=== PATIENT | male | born 1985 | race Caucasian/White ===

== ENCOUNTER 2017-10-07 11:39 | Emergency (ER) | payer OTHER ==
[~2017-10-07] VITALS: Ht 167.6 cm; Wt 87.0 kg
[2017-10-07 11:46] VITALS: TEMP 36.9; Ht 167.6 cm; Wt 87.0 kg
[2017-10-07] MEDS ORDERED: LORAZEPAM 1 MG TAB SL STA (12:03)
[2017-10-07 12:48] LABS: BASO % 0.3 %; BASO ABS # 0.03 K/uL (0-0.2); COMPLETE YES; EOS % 1.2 %; HEMATOCRIT 50.9 % (42-52); IG% 0.2 %; LYMPH % 25.9 %; LYMPH ABS # 2.71 K/uL (1.2-3.4); MEAN CELL VOLUME 86.4 fL (80-100); MEAN CORPUSCULAR HEMOGLOBIN 30.1 pg (25-34); MEAN CORPUSCULAR HGB CONC 34.8 g/dl (32-36); MEAN PLATELET VOLUME 11.2 fL (7.4-10.4); MONO % 8.9 %; NEUT % 63.5 %; PLATELET COUNT 238 K/uL (130-400); RED BLOOD COUNT 5.89 M/uL (4.7-6.1); WHITE BLOOD COUNT 10.47 K/uL (4.8-10.8)
[2017-10-07 13:04] LABS: URINE APPEARANCE TURBID (CLEAR); URINE BILIRUBIN NEG (NEG); URINE COLOR YELLOW; URINE NITRITE NEG (NEG); URINE PH 8.5 (4.5-7.5); URINE SPECIFIC GRAVITY 1.027 (1.000-1.030); UROBILINOGEN NEG (NEG)
[2017-10-07 13:11] LABS: MANUAL MICROSCOPIC REQUIRED? NO; REVIEW REQ? NO
[2017-10-07 13:13] LABS: ALT/SGPT 25 U/L (12-78); AST/SGOT 11 U/L (15-37); BLOOD UREA NITROGEN 17 mg/dl (7-18); BUN/CREATININE RATIO 16.8 (10-20); CALCIUM 8.8 mg/dl (8.5-10.1); CARBON DIOXIDE 30 mmol/L (21-32); CHLORIDE 106 mmol/L (98-107); CREATININE 1.03 mg/dl (0.60-1.40); GLUCOSE 105 mg/dl (70-99); SODIUM 140 mmol/L (136-145)
[2017-10-07 13:20] LABS: BENZODIAZEPINE, URINE NEG (NEG); COCAINE,URINE NEG (NEG); PHENCYCLIDINE, URINE NEG (NEG)
[2017-10-07 13:23] LABS: ALKALINE PHOSPHATASE 68 U/L (45-117)
--- NOTE | 2017-10-07 13:26 | EMERGENCY ROOM VISIT NOTE ---
History Report prepared by Иван: Jaclyn Cortez Under the Supervision of: Dr. Richard Agrawal D.O. First contact with patient: 11:52 Chief Complaint: MENTAL HEALTH EVALUATION Stated Complaint: PTSD History of Present Illness The patient is a 32 year old male who presents to the Emergency Room for a mental health evaluation. The patient states that for the past two days "I can' t deal with every day stress." He recently lost his house and his job and had to move back in with his parents. He states that over the past month he has been trying to remain positive. Last night he started having thoughts of hurting himself and has a concrete plan. He states that he would never act on these thoughts because he has 3 children that depend on him. The patient states that "I have seen a lot of stuff and I have no one to talk to and no support system." He does not see a therapist. He has never been inpatient for mental health in the past. The patient states that he has been unable to sleep because "I am having flashbacks of horrible things that I have seen and done." He used to drink alcohol as a coping mechanism, but stopped drinking alcohol 3 years ago. Source of History: patient Onset: 2 days ago Position: other (mental health) Timing: worsening Modifying Factors (Worsening): other (stress) Note: Pt admits to SI. Review of Systems See HPI for pertinent positives & negatives. A total of 10 systems reviewed and were otherwise negative. Past Medical & Surgical Medical Problems: (1) Lumbago Family History No pertinent history stated. Social History Alcohol Use: occasionally Drug Use: cocaine, marijuana Marital Status: in relationship Housing Status: lives with family Occupation Status: unemployed Current/Historical Medications No Active Prescriptions or Reported Meds Allergies Coded Allergies: No Known Allergies (Unverified , 10/07/17) Physical Exam Vital Signs Date Time Temp Pulse Resp B/P (MAP) Pulse Ox O2 Delivery O2 Flow Rate FiO2 10/07/17 15:02 96 20 148/104 95 10/07/17 11:46 36.9 94 18 155/94 97 Room Air Physical Exam GENERAL: Patient is awake, alert, very anxious appearing. EYES: The conjunctivae are clear. The pupils are round and reactive. EARS, NOSE, MOUTH AND THROAT: The nose is without any evidence of any deformity. Mucous membranes are moist tongue is midline NECK: The neck is nontender and supple. RESPIRATORY: Normal respiratory effort is noted there is no evidence of wheezing rhonchi or rales CARDIOVASCULAR: Regular rate and rhythm noted there no murmurs rubs or gallops normal S1 normal S2 GASTROINTESTINAL: The abdomen is soft. Bowel sounds are present in all quadrants. Abdomen is nontender MUSCULOSKELETAL/EXTREMITIES: There is no evidence of gross deformity full range of motion is noted in the hips and shoulders SKIN: There is no obvious evidence of any rash. There are no petechiae, pallor or cyanosis noted. NEUROLOGIC: Patient is awake alert and oriented x3 PSYCH: Affect is very flat. Patient appears depressed, currently admitting to with a plan but will not elaborate. Patient makes very poor eye contact. Medical Decision & Procedures Laboratory Results 10/07/17 12:31 Red Blood Count 5.89, Mean Corpuscular Volume 86.4, Mean Corpuscular Hemoglobin 30.1, Mean Corpuscular Hemoglobin Concent 34.8, Mean Platelet Volume 11.2, Neutrophils (%) (Auto) 63.5, Lymphocytes (%) (Auto) 25.9, Monocytes (%) (Auto) 8.9, Eosinophils (%) (Auto) 1.2, Basophils (%) (Auto) 0.3, Neutrophils # (Auto) 6.65, Lymphocytes # (Auto) 2.71, Monocytes # (Auto) 0.93, Eosinophils # (Auto) 0.13, Basophils # (Auto) 0.03 10/07/17 12:31 Test 10/07/17 11:57 10/07/17 12:31 Urine Color YELLOW Urine Appearance TURBID (CLEAR) Urine pH 8.5 (4.5-7.5) Urine Specific [place] 1.027 (1.000-1.030) Urine Protein NEG (NEG) Urine Glucose (UA) NEG (NEG) Urine Ketones NEG (NEG) Urine Occult Blood NEG (NEG) Urine Nitrite NEG (NEG) Urine Bilirubin NEG (NEG) Urine Urobilinogen NEG (NEG) Urine Leukocyte Esterase TRACE (NEG) Urine WBC (Auto) 1-5 /hpf (0-5) Urine RBC (Auto) 0-4 /hpf (0-4) Urine Hyaline Casts (Auto) 5-10 /lpf (0-5) Urine Epithelial Cells (Auto) 10-20 /lpf (0-5) Urine Bacteria (Auto) NEG (NEG) Urine Opiates Screen NEG (NEG) Urine Methadone, Qualitative NEG (NEG) Urine Barbiturates NEG (NEG) Urine Phencyclidine (PCP) Level NEG (NEG) Ur Amphetamine/Methamphetamine POS (NEG) MDMA (Ecstasy) Screen NEG (NEG) Urine Benzodiazepines Screen NEG (NEG) Urine Cocaine Metabolite NEG (NEG) Urine Marijuana (THC) POS (NEG) White Blood Count 10.47 K/uL (4.8-10.8) Red Blood Count 5.89 M/uL (4.7-6.1) Hemoglobin 17.7 g/dL (14.0-18.0) Hematocrit 50.9 % (42-52) Mean Corpuscular Volume 86.4 fL (80-100) Mean Corpuscular Hemoglobin 30.1 pg (25-34) Mean Corpuscular Hemoglobin Concent 34.8 g/dl (32-36) Platelet Count 238 K/uL (130-400) Mean Platelet Volume 11.2 fL (7.4-10.4) Neutrophils (%) (Auto) 63.5 % Lymphocytes (%) (Auto) 25.9 % Monocytes (%) (Auto) 8.9 % Eosinophils (%) (Auto) 1.2 % Basophils (%) (Auto) 0.3 % Neutrophils # (Auto) 6.65 K/uL (1.4-6.5) Lymphocytes # (Auto) 2.71 K/uL (1.2-3.4) Monocytes # (Auto) 0.93 K/uL (0.11-0.59) Eosinophils # (Auto) 0.13 K/uL (0-0.5) Basophils # (Auto) 0.03 K/uL (0-0.2) RDW Standard Deviation 40.9 fL (36.4-46.3) RDW Coefficient of Variation 12.9 % (11.5-14.5) Immature Granulocyte % (Auto) 0.2 % Immature Granulocyte # (Auto) 0.02 K/uL (0.00-0.02) Anion Gap 4.0 mmol/L (3-11) Est Creatinine Clear Calc Drug Dose 108.4 ml/min Estimated GFR () 112.5 Estimated GFR (Non- 97.0 BUN/Creatinine Ratio 16.8 (10-20) Calcium Level 8.8 mg/dl (8.5-10.1) Total Bilirubin 0.4 mg/dl (0.2-1) Direct Bilirubin < 0.1 mg/dl (0-0.2) Aspartate Amino Transf (AST/SGOT) 11 U/L (15-37) Alanine Aminotransferase (ALT/SGPT) 25 U/L (12-78) Alkaline Phosphatase 68 U/L (45-117) Total Protein 7.8 gm/dl (6.4-8.2) Albumin 3.7 gm/dl (3.4-5.0) Thyroid Stimulating Hormone (TSH) 1.610 uIu/ml (0.300-4.500) Ethyl Alcohol mg/dL < 3.0 mg/dl (0-3) Laboratory results per my review. Medications Administered Medications (Trade) Dose Ordered Sig/Dorothy Route Start Time Stop Time Status Last Admin Dose Admin Lorazepam (Ativan Tab) 1 mg NOW STAT SL 10/07/17 12:03 10/07/17 12:05 DC 10/07/17 12:13 1 MG ED Course 1152: The patient was evaluated in room A6. A complete history and physical examination were performed. 1203: Lorazepam 1 mg SL 1432: The patient does not wish to have inpatient treatment. He would like to be discharged home. He will be discharged and case management will arrange outpatient follow-up for the patient. Medical Decision Differential diagnosis: Etiologies such as mood disorder, infection, hypoglycemia, electrolyte abnormalities, cardiac sources, intracerebral event, toxicologic, neurologic, as well as others were entertained. Nursing notes reviewed. The patient is a 32-year-old male who presented to the emergency department for mental health evaluation. He is very significant anxiety as well as depressive symptoms. The patient has had similar symptoms in the past. The patient was medically cleared in the emergency department and then evaluated by the mental health delegate. The patient was able to contract for safety although I do feel that he is able to manage this as an outpatient I encouraged him to return to the emergency Department immediately or call crisis immediately if symptoms resume or worsen. The patient was encouraged to arrange outpatient follow-up. He is currently not on any medication and he discussed the desire to be started on medications. I do feel that he would seek follow-up appointment especially with his current symptoms. He was treated with Ativan in the emergency department. On subsequent reevaluation he is feeling much better. Medication Reconcilliation Current Medication List: was personally reviewed by me Blood Pressure Screening Patient's blood pressure: Elevated blood pressure Blood pressure disposition: Elevated BP felt to be situational Impression Primary Impression: Depression Additional Impression: Suicidal ideation Scribe Attestation The scribe's documentation has been prepared under my direction and personally reviewed by me in its entirety. I confirm that the note above accurately reflects all work, treatment, procedures, and medical decision making performed by me. Departure Information Dispostion Home / Self-Care Prescriptions No Active Prescriptions or Reported Meds Referrals No Doctor, Assigned (PCP) Forms HOME CARE DOCUMENTATION FORM, IMPORTANT VISIT INFORMATION Patient Instructions Depression Causes, Depression Counseling, My [facility] Additional Instructions Call your family to schedule a follow-up appointment. Follow-up with your therapist as scheduled. Call crisis or return to the emergency Department immediately if symptoms change worsen or the need arises. Problem Qualifiers Primary Impression: Depression Depression Type: unspecified Qualified Codes: F32.9 - Major depressive disorder, single episode, unspecified
[2017-10-07 15:02] VITALS: BP 148/104; PULSE 96; O2SAT 95
== END 2017-10-07 15:04 | disposition home or self-care (01) ==
LOC: C.EDB 11:41 → C.EDA 15:04
DX: F32.9 Major depressive disorder, single episode, unspecified (principal); F41.9 Anxiety disorder, unspecified; F14.90 Cocaine use, unspecified, uncomplicated; F12.90 Cannabis use, unspecified, uncomplicated; R45.851 Suicidal ideations

== ENCOUNTER 2022-12-05 14:29 | Observation (INO) ==
[2022-12-05 15:32] LABS: Basophils # (auto) 0.03 K/uL (0-0.2); Basophils % (auto) 0.4 %; Eosinophils # (auto) 0.26 K/uL (0-0.50); Eosinophils % (auto) 3.2 %; Hematocrit (blood only) 47.7 % (40.1-51.0); Hemoglobin 16.1 g/dl (14.0-18.0); Immature Granulocytes # (auto) 0.02 K/uL (0.00-0.02); Immature Granulocytes % (auto) 0.2 %; Lymphocytes # (auto) 2.56 K/uL (1.2-3.4); Lymphocytes % (auto) 31.3 %; Mean Corpuscular Hemoglobin 30.1 pg (25.0-34.0); Mean Corpuscular Hgb Conc 33.8 g/dL (32.0-36.0); Mean Corpuscular Volume 89.2 fL (80.0-100.0); Mean Platelet Volume 10.5 fL (9.4-12.4); Monocytes # (auto) 0.63 K/uL (0.24-0.82); Monocytes % (auto) 7.7 %; Neutrophils # (auto) 4.67 K/uL (1.4-6.5); Neutrophils % (auto) 57.2 %; Platelet Count 238 K/uL (130-400); RDW Coefficient of Variation 12.5 % (11.5-14.5); RDW Standard Deviation 40.7 fL (36.4-46.3); Red Blood Count 5.35 M/uL (4.63-6.08); White Blood Count 8.17 K/ul (4.8-10.8)
[2022-12-05 16:08] LABS: Alanine Aminotransferase 13 U/L (7-52); Albumin Globulin Ratio 1.3 (0.9-2); Albumin Level 4.2 gm/dl (3.4-5.0); Alkaline Phosphatase 58 U/L (34-104); Anion Gap 4 (3-11); BUN Creatinine Ratio 17.8 (10-20); Bilirubin,Total 0.4 mg/dl (0.2-1.0); Blood Urea Nitrogen 16 mg/dl (6-23); Calcium 9.5 mg/dl (8.5-10.1); Carbon Dioxide 31 mmol/L (21-32); Chloride 107 mmol/L (98-107); Creatinine Clr Calc Pharmacy 115.4 ml/min; Est GFR (African American) 127.8 ml/min; Est GFR (Non-African American) 110.3 ml/min; Globulin 3.2 gm/dl (2.5-4.0); Glucose 74 mg/dl (70-99(Fasting)); Sodium 142 mmol/L (136-145); Total Protein 7.4 gm/dl (6.0-8.3)
[2022-12-05] MEDS ORDERED: cefTRIAXone SODIUM 2,000 MG/70 ML BAG IV STA (16:41)
[2022-12-05] MEDS ORDERED: MoRPHine SULFATE 10 MG/ML CARP/VIAL IV STA (16:41)
[2022-12-05] MEDS ORDERED: ONDANSETRON INJ 2 MG/ML 2 ML VIAL IV STA (16:41)
[2022-12-05] MEDS ORDERED: SODIUM CHLORIDE 0.9% 1000ML 1,000 ML IV SCH (16:42)
[2022-12-05] MEDS ORDERED: DIPHTHERIA/TETANUS/PERTUSSIS 0.5mL SYR/VIAL (Age 7+yrs) IM ONE (16:47)
--- NOTE | 2022-12-05 16:47 | Emergency Department Note ---
Impression & Plan Cellulitis of right hand, Failure of outpatient treatment ED Provider Note CHIEF COMPLAINT: Right hand infection since this morning HISTORY OF PRESENT ILLNESS: Patient is a [id number] 37-year-old male with past medical history significant for anxiety, depression and PTSD who presents emergency department for evaluation of right hand pain, swelling and redness and warmth after a laceration that occurred 3 days ago. Patient was trimming a tree, and states that when part of the tree fell, it fell into him and his running chainsaw hit him in the ulnar aspect of the right hand. He put a strap around his forearm to act as a tourniquet but he did not have anything to cover the wound. He went to the emergency department at [facility]. He states that it took some time for him to be evaluated, but eventually they had him soak his hand in a basin of hydrogen peroxide and water. They did do an x-ray, he reports that they told him he "hit the bone." They numbed up his hand and repaired his laceration but apparently left a small opening on the palmar aspect because they were concerned about either infection or foreign body. They did not update his tetanus and he is not sure that his tetanus is current. They did prescribe him Keflex 3 times daily which he has been taking. He has been washing the area with hydrogen peroxide and water and apply bacitracin and light dressings to the area. He reports that he is had uncontrolled pain since the incident. He has been taking extra take Tylenol. They gave him a small prescription for tramadol which has not helped. He notes a constant, throbbing pain in his hand that radiates up his forearm, he rates his pain a 10/10. He states that he woke up with redness, warmth and swelling in the hand, that has gotten worse as the day has gone on. It is radiating up his forearm. He subjectively felt hot and cold but has not checked his temperature with a thermometer. No prior history of skin infections, abscesses or cellulitis. REVIEW OF SYSTEMS: Review of systems as per HPI. All other systems reviewed were negative. 10 systems reviewed. PMH: External medical records are reviewed and summarized as above/below. See Problem List. SOCIAL HISTORY: Patient lives at home. Employed. PHYSICAL EXAM: Vital Signs: Reviewed Nurse's notes. CONSTITUTIONAL: Patient is an uncomfortable appearing 37-year-old male who is awake and alert and seated on the gurney. His significant other is at the bedside. HEART: Regular rate and rhythm. LUNGS: Clear to auscultation. INTEGUMENTARY: Examination of the right hand, ulnar aspect, over the mid fifth metacarpal there is a sutured laceration. It extends onto the palmar aspect of the hand near the fifth MCP joint. The entire hand is swollen, into the fingers. The dorsal aspect of the hand is warm to the touch and quite erythematous. The erythema extends to the extensor crease of the wrist, then there is faint lymphangitic streaking extending up the radial aspect of the forearm. The sutures himself are intact, there is no obvious purulent discharge noted. He can actively extend the fingers fairly fully, but has difficulty with flexion. Sensation light touch is intact. Capillary refill less than 2 seconds, radial and ulnar pulses are easily palpable. Sensation light touch is intact. EMERGENCY DEPARTMENT COURSE: The patient was seen and assessed as above. External medical records were reviewed. He presents the emergency department for evaluation of a right hand infection after a laceration from a chainsaw that occurred 3 days ago. IV lock was initiated. Laboratory studies including CBC with differential and CMP were collected. CT scan of the right hand was obtained to evaluate the degree of infection. He was hydrated with normal saline solution and treated with morphine 4 mg IV and Zofran 4 mg IV. He was given ceftriaxone 2 g IV. Adacel was also ordered. Laboratory studies note no leukocytosis indicative of infection. No anemia. Electrolytes and renal functions and liver functions are normal. CT scan of the right hand notes subcutaneous edema, with no obvious opaque foreign body. There is a 3 mm chip fracture of the fifth metacarpal, otherwise no otherwise acute fracture. No fluid collection to suspect abscess. The patient was reassessed. He was resting comfortably, and was quite sedate from the IV morphine. He reported his pain was a 2/10 at reassessment. Laboratory studies and diagnostic imaging were reviewed with him and his significant other. Given the mechanism of injury and physical exam findings, and that he has already been on some prophylactic antibiotics for the last 2 days, I felt that admission/observation for IV antibiotics and orthopedic evaluation was warranted. He was in agreement. Case was reviewed with attending physician. Consultation was placed with the [place] [facility] hospitalist service for further care and management. Patient reviewed with Dr. Grady. Please refer to admission H&P for further information. Differential diagnoses entertained included cellulitis, abscess, necrotizing fasciitis, infectious tenosynovitis, nerve, vascular or tendon laceration, open fracture, osteomyelitis, foreign body, among others. Past Med/Surg History Medical History Depression with anxiety Hypertension Insomnia Lumbago Male infertility Nightmares associated with chronic post-traumatic stress disorder PTSD (post-traumatic stress disorder) Surgical History Status post surgery Tonsil abscess removed. Family History Grandfather Heart disease Father Diabetes Hypertension Mother Hypertension Cancer Ovarian cancer Grandmother Cancer Brother Myocardial infarction Grandfather (Paternal) Myocardial infarction Grandfather (Maternal) Myocardial infarction Grandmother (Maternal) Ovarian cancer Denies family history of Prostate cancer Breast cancer Colorectal cancer Social History Smoking Status: Current every day smoker Tobacco Type: E-cigarettes / Vaping Second Hand Exposure: No; Do You Dip or Chew Tobacco: No; Hx Alcohol Use: No Hx Substance Use: Yes Preferred Language: Ug[place]an Communication Ability: Effective Visual Impairment: Limited Hearing Ability: Normal [place] Hand Required: No Beliefs That Will Affect Care: None marital status: Single marital status details: Lives with Children. Current Living Situation: Alone current occupational status: employed How many Children do You have: 3 Other Information That Helps Us Care for You: No Feels Safe at Home: Yes Safety Concerns: Feels Safe At This Time Childhood Exposure to Second-Hand Smoke: No caffeine: Yes (Soda - occasional Tea - occasional.) during the past year weight has: remained stable Dental Care, Regularly: No Physical Activity Frequency: Daily Seatbelt Use: always Sunscreen Use: No Assistive Devices: Glasses Allergies Allergies Allergy/AdvReac Type Severity Reaction Status Date / Time No Known Drug Allergies Allergy nkda Verified 12/05/22 17:54 Home Meds Home Medications Medication Instructions Recorded Confirmed tramadol 50 mg tablet 50 mg PO Q4H PRN Pain 12/05/22 12/05/22 venlafaxine 75 mg capsule,extended 75 mg PO DAILY PRN Anxiety 12/05/22 12/05/22 release 24 hr Results & Data (ED) Vital Signs Vital Signs - 24 hr 12/05/22 14:57 12/05/22 18:49 Temperature 36.4 C L Temperature Source Temporal Artery Scan Pulse Rate 77 Pulse Rate [Right Radial] 57 L Pulse Rhythm [Right Radial] Regular Pulse Strength [Right Radial] Normal Respiratory Rate 18 20 Respiratory Effort / Characteristics Non-Labored Spontaneous Non-Labored Respiratory Depth Normal Normal Respiratory Pattern Regular Regular Blood Pressure [Right Arm] 123/79 Blood Pressure Mean [Right Arm] 93 Pulse Oximetry 99 99 Oxygen Delivery Method Room Air Room Air Sepsis Recent Fever Within 48 Hours Yes Sepsis New/Unexplained Change in Mental Status N/A Sepsis Action Taken by Nursing No Action Required Home Medications Current Medication List: was personally reviewed by me Laboratory Data Attestation: I reviewed the patient's lab results. 12/05/22 15:15 12/05/22 15:15 Lab Results 12/05/22 12/05/22 12/05/22 Range/Units 15:15 15:15 15:15 WBC 8.17 (4.8-10.8) K/ul RBC 5.35 (4.63-6.08) M/uL Hgb 16.1 (14.0-18.0) g/dl Hct 47.7 (40.1-51.0) % MCV 89.2 (80.0-100.0) fL MCH 30.1 (25.0-34.0) pg MCHC 33.8 (32.0-36.0) g/dL RDW Std Deviation 40.7 (36.4-46.3) fL RDW Coeff of Bonnie 12.5 (11.5-14.5) % Plt Count 238 (130-400) K/uL MPV 10.5 (9.4-12.4) fL Immature Gran % (Auto) 0.2 % Neut % (Auto) 57.2 % Lymph % (Auto) 31.3 % [place] % (Auto) 7.7 % Eos % (Auto) 3.2 % Baso % (Auto) 0.4 % Neut # (Auto) 4.67 (1.4-6.5) K/uL Lymph # (Auto) 2.56 (1.2-3.4) K/uL [place] # (Auto) 0.63 (0.24-0.82) K/uL Eos # (Auto) 0.26 (0-0.50) K/uL Baso # (Auto) 0.03 (0-0.2) K/uL Immature Gran # (Auto) 0.02 (0.00-0.02) K/uL Sodium 142 (136-145) mmol/L Potassium TNP Chloride 107 (98-107) mmol/L Carbon Dioxide 31 (21-32) mmol/L Anion Gap 4 (3-11) BUN 16 (6-23) mg/dl Creatinine 0.90 (0.6-1.4) mg/dl Est Cr Clr Drug Dosing 115.4 ml/min Est GFR ( Amer) 127.8 ml/min Est GFR (Non-Af Amer) 110.3 ml/min BUN/Creatinine Ratio 17.8 (10-20) Glucose 74 (70-99(Fasting)) mg/dl Calcium 9.5 (8.5-10.1) mg/dl Total Bilirubin 0.4 (0.2-1.0) mg/dl AST TNP ALT 13 (7-52) U/L Alkaline Phosphatase 58 (34-104) U/L C-Reactive Protein 0.99 H (0-0.5) mg/dl Total Protein 7.4 (6.0-8.3) gm/dl Albumin 4.2 (3.4-5.0) gm/dl Globulin 3.2 (2.5-4.0) gm/dl Albumin/Globulin Ratio 1.3 (0.9-2) SARS-CoV-2, RNA, NAAT (NEGATIVE) 12/05/22 12/05/22 Range/Units 16:59 18:52 WBC (4.8-10.8) K/ul RBC (4.63-6.08) M/uL Hgb (14.0-18.0) g/dl Hct (40.1-51.0) % MCV (80.0-100.0) fL MCH (25.0-34.0) pg MCHC (32.0-36.0) g/dL RDW Std Deviation (36.4-46.3) fL RDW Coeff of Bonnie (11.5-14.5) % Plt Count (130-400) K/uL MPV (9.4-12.4) fL Immature Gran % (Auto) % Neut % (Auto) % Lymph % (Auto) % [place] % (Auto) % Eos % (Auto) % Baso % (Auto) % Neut # (Auto) (1.4-6.5) K/uL Lymph # (Auto) (1.2-3.4) K/uL [place] # (Auto) (0.24-0.82) K/uL Eos # (Auto) (0-0.50) K/uL Baso # (Auto) (0-0.2) K/uL Immature Gran # (Auto) (0.00-0.02) K/uL Sodium (136-145) mmol/L Potassium 4.2 Chloride (98-107) mmol/L Carbon Dioxide (21-32) mmol/L Anion Gap (3-11) BUN (6-23) mg/dl Creatinine (0.6-1.4) mg/dl Est Cr Clr Drug Dosing ml/min Est GFR ( Amer) ml/min Est GFR (Non-Af Amer) ml/min BUN/Creatinine Ratio (10-20) Glucose (70-99(Fasting)) mg/dl Calcium (8.5-10.1) mg/dl Total Bilirubin (0.2-1.0) mg/dl AST 14 ALT (7-52) U/L Alkaline Phosphatase (34-104) U/L C-Reactive Protein (0-0.5) mg/dl Total Protein (6.0-8.3) gm/dl Albumin (3.4-5.0) gm/dl Globulin (2.5-4.0) gm/dl Albumin/Globulin Ratio (0.9-2) SARS-CoV-2, RNA, NAAT NEGATIVE (NEGATIVE) Administered Medications Acetaminophen (Acetaminophen 325 Mg Tab) 650 mg PO Q4H PRN PRN Reason: Fever/Mild Pain (Pain 1,2,3) Stop: 01/04/23 20:36 Last Admin: 12/05/22 20:45 Dose: 650 mg Documented By: LY Ampicillin Sodium/Sulbactam Sodium 3,000 mg/ Sodium Chloride 108 mls @ 200 mls/hr IV Q6H [facility]; Protocol Stop: 12/12/22 21:59 Last Infusion: 12/05/22 22:03 Dose: 0 mls/hr Documented By: Admin: 12/05/22 21:30 Dose: 200 mls/hr Documented By: EVANGELISTA Discontinued Medications Diphtheria/Pertussis/Tetanus Vacc (Diphtheria/Tetanus/Pertussis 0.5ml Syr/Vial (Age 7+Yrs)) 0.5 ml IM .ONCE ONE Stop: 12/05/22 16:48 Last Admin: 12/05/22 18:28 Dose: 0.5 ml Documented By: KAVONK Gadobutrol (Gadobutrol 65ml Vial) 8 ml IV ONCE ONE Stop: 12/05/22 23:16 Last Admin: 12/05/22 23:16 Dose: 8 ml Documented By: MICHEAL Sodium Chloride (Nss 1000ml) 1,000 mls @ 999 mls/hr IV .Q1H1M SNEHA Stop: 12/05/22 17:42 Last Infusion: 12/05/22 18:06 Dose: 0 mls/hr Documented By: Admin: 12/05/22 17:13 Dose: 999 mls/hr Documented By: KAVONK Ceftriaxone Sodium (Rocephin) 2,000 mg in 70 mls @ 140 mls/hr IV NOW STA Stop: 12/05/22 17:10 Last Infusion: 12/05/22 18:06 Dose: 0 mls/hr Documented By: Admin: 12/05/22 17:14 Dose: 140 mls/hr Documented By: DANIELITO Ibuprofen (Ibuprofen 800 Mg Tab) 800 mg PO NOW STA Stop: 12/05/22 22:05 Last Admin: 12/05/22 23:27 Dose: 800 mg Documented By: EVANGELISTA Ioversol (Optiray 350 100ml) 85 ml IV ONCE ONE Stop: 12/05/22 17:16 Last Admin: 12/05/22 17:16 Dose: 85 ml Documented By: ARBENK Morphine Sulfate (Morphine Sulfate 10 Mg/Ml Carp/Vial) 6 mg IV NOW STA Stop: 12/05/22 16:42 Last Admin: 12/05/22 18:40 Dose: Not Given Documented By: PINKY Morphine Sulfate (Morphine Sulfate 4 Mg/Ml 1 Ml Carp\\Vial) 4 mg IV Q1H PRN PRN Reason: Pain Stop: 12/19/22 16:40 Last Admin: 12/05/22 18:44 Dose: 4 mg Documented By: Admin: 12/05/22 17:01 Dose: 4 mg Documented By: DANIELITO Morphine Sulfate (Morphine Sulfate 2 Mg/Ml Carp) 1 mg IV NOW STA Stop: 12/05/22 22:09 Last Admin: 12/05/22 22:13 Dose: 1 mg Documented By: EVANGELISTA Ondansetron HCl (Ondansetron Inj 2 Mg/Ml 2 Ml Vial) 4 mg IV NOW STA Stop: 12/05/22 16:42 Last Admin: 12/05/22 17:01 Dose: 4 mg Documented By: DANIELITO Imaging Data Attestation: I personally reviewed and interpreted this imaging study as follows: Radiologist's Impression: Hand CT 12/05/22 16:40 CT hand RT w con HISTORY: 37 years-old Male INFECTION S/P SAW INJURY/LACERATION REPAIR acute pain of the right hand status post injury COMPARISON: None TECHNIQUE: Multiple axial CT images of the right hand were obtained following the intravenous administration of 85 mL Optiray 350. A dose lowering technique was used consistent with the principals of DERRICK. FINDINGS: Mild subcutaneous edema is most pronounced in the dorsal hand. No fluid collection identified to suggest abscess. Tendons and ligaments are not well evaluated by CT technique. No opaque foreign body identified. There is a 3 mm cortical fragment with adjacent donor site involving the lateral cortex of the mid diaphyseal fifth metacarpal, image 46 of the coronal series and image 211 of series 3. Otherwise, no acute fracture, dislocation or osseous erosion identified. The joint spaces appear preserved. IMPRESSION: 1. 3 mm acute cortical chip fracture defect of the fifth metacarpal, likely secondary to penetrating trauma. 2. Subcutaneous edema of the hand. 3. No opaque foreign body identified. ACT 112: Negative or not required by law. The above report was generated using voice recognition software. It may contain grammatical, syntax or spelling errors. Electronically signed by: Romero Shah M.D. 12/05/2022 5:26 PM Discharge Plan Visit Data Chief Complaint: Infection, Wound Stated Complaint: INFECTED WOUND ED Provider: Abhijeet Narvaez ED Midlevel Provider: Lyubov Chavira Discharge Problem: Cellulitis of right hand, Failure of outpatient treatment Patient Disposition: Admitted As Inpatient Discharge Instructions Interventions: ED Discharge Assessment Last Done: 12/05/22 20:42
[2022-12-05] MEDS: MoRPHine SULFATE 4 MG/ML 1 ML CARP\\VIAL IV PRN ×2 (17:01→18:44)
[2022-12-05] MEDS ORDERED: OPTIRAY 350 100ml IV ONE (17:15)
--- NOTE | 2022-12-05 17:27 | CT Scan Report ---
CT hand RT w con HISTORY: 37 years-old Male INFECTION S/P SAW INJURY/LACERATION REPAIR acute pain of the right hand s tatus post injury COMPARISON: None TECHNIQUE: Multiple axial CT images of the right hand were obtained following the intravenous adminis tration of 85 mL Optiray 350. A dose lowering technique was used consistent with the principals of MAUREEN CRUZ. FINDINGS: Mild subcutaneous edema is most pronounced in the dorsal hand. No fluid collection identified to sugg est abscess. Tendons and ligaments are not well evaluated by CT technique. No opaque foreign body claudia ntified. There is a 3 mm cortical fragment with adjacent donor site involving the lateral cortex of t he mid diaphyseal fifth metacarpal, image 46 of the coronal series and image 211 of series 3. Otherwi se, no acute fracture, dislocation or osseous erosion identified. The joint spaces appear preserved. IMPRESSION: 1. 3 mm acute cortical chip fracture defect of the fifth metacarpal, likely secondary to penetrating trauma. 2. Subcutaneous edema of the hand. 3. No opaque foreign body identified. ACT 112: Negative or not required by law. The above report was generated using voice recognition software. It may contain grammatical, syntax o r spelling errors. Electronically signed by: Romero Shah M.D. 12/05/2022 5:26 PM
[2022-12-05 17:36] LABS: Potassium 4.2 mmol/L (3.5-5.1)
--- NOTE | 2022-12-05 18:42 | History & Physical Report ---
Date of Service December 05, 2022 History of Present Illness Primary Care Provider: YOSEF Garcia Allergies Allergy/AdvReac Type Severity Reaction Status Date / Time No Known Drug Allergies Allergy nkda Verified 12/05/22 17:54 Home Medications Medication Instructions Recorded Confirmed Type tramadol 50 mg tablet 50 mg PO Q4H PRN Pain 12/05/22 12/05/22 History venlafaxine 75 mg capsule,extended 75 mg PO DAILY PRN Anxiety 12/05/22 12/05/22 History release 24 hr Past Med/Surg History Medical History Depression with anxiety Hypertension Insomnia Lumbago Male infertility Nightmares associated with chronic post-traumatic stress disorder PTSD (post-traumatic stress disorder) Surgical History Status post surgery Tonsil abscess removed. Family History Grandfather Heart disease Father Diabetes Hypertension Mother Hypertension Cancer Ovarian cancer Grandmother Cancer Brother Myocardial infarction Grandfather (Paternal) Myocardial infarction Grandfather (Maternal) Myocardial infarction Grandmother (Maternal) Ovarian cancer Denies family history of Prostate cancer Breast cancer Colorectal cancer Social History Smoking Status: Current every day smoker Tobacco Type: E-cigarettes / Vaping Second Hand Exposure: No; Do You Dip or Chew Tobacco: No; Hx Alcohol Use: No Hx Substance Use: Yes Preferred Language: Citizen Of [place] Communication Ability: Effective Visual Impairment: Limited 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 Current Living Situation: Alone current occupational status: employed How many Children do You have: 3 Other Information That Helps Us Care for You: No Feels Safe at Home: Yes Safety Concerns: Feels Safe At This Time Childhood Exposure to Second-Hand Smoke: No caffeine: Yes (Soda - occasional Tea - occasional.) during the past year weight has: remained stable Dental Care, Regularly: No Physical Activity Frequency: Daily Seatbelt Use: always Sunscreen Use: No Assistive Devices: Glasses Review of Systems Review of Systems: see attending documentation Physical Exam Physical Exam: see attending documentation Results & Data Results & [facility] ([facility]) Vital Signs (Past 12 Hours) Vital Signs Temp Pulse Resp Pulse Ox O2 Del Method 12/05/22 14:57 36.4 C L 77 18 99 Room Air Supervising Physician Co-Signing Physician Notes Note duplicated in error. See attending H and P. Resident Activity Tracking Resident Involvement: Resident Care Provided and [employer] Director Coverage Note Care Provided: Adult Hospital Medicine
[2022-12-05] MEDS ORDERED: VENLAFAXINE HCL XR 75 MG CAPXR PO PRN (19:03)
--- NOTE | 2022-12-05 19:21 | History & Physical Report ---
Date of Service December 05, 2022 Assessment & Plan (1) Injury of right hand: Plan: Chainsaw injury to right hand Dominant hand his left hand Sustained on Thursday, was seen [place] was soaked 3 times and then had laceration repair approximately 1 hour post injury. Was discharged on Keflex twice daily Did not improve, gradually worsened, on 12/05 greatly increased pain redness and erythema Passive flexion/extension of the right fifth PIP/DIP does cause shooting radiating pain past the wrist CThand: 1. 3 mm acute cortical chip fracture defect of the fifth metacarpal, likely secondary to penetrating trauma. 2. Subcutaneous edema of the hand.3. No opaque foreign body identified. Tendon sheath poorly visualized on CT, MRI pending given radiating pain through wrist and elbow with minimal passive flexion/extension of right fifth PIP/DIP. No evidence of abscess on contrasted CT Orthopedics consulted for evaluation Given worsening over several days and enclosure from suturing will expand for anaerobe coverage, continue Unasyn at this time. No known history or exposure to MRSA. No purulence or abscess appreciated Hypertension On chart review, patient BP normal does not take antihypertensives currently Anxiety depression Continue venlafaxine daily Tobacco use Vapes daily. Patch provided. DVT prophylaxis: Low risk, SCDs Disposition: Medical surgical Diet: N.p.o. pending surgical eval CODE STATUS: Full code (2) Hypertension: (3) Depression with anxiety: History of Present Illness Primary Care Provider: YOSEF Garcia Patient seen and examined, chart reviewed, case discussed with Aneesh Gan and I agree with the assessment and plan as above except as otherwise noted Labs and images reviewed Haresh is a 37-year-old male with a history of depression/PTSD/anxiety who presented with right hand pain, swelling, and warmth after trimming a tree and sustaining a chainsaw laceration 3 days ago. He was seen at [facility] in [place], hand was soaked with hydrogen peroxide and water, had an x-ray performed that did not show bony involvement, and had a laceration repair while leaving a small opening on the palmar aspect. He did not have an updated tetanus. He was discharged on Keflex 3 times daily. He has since had progressive uncontrollable pain not improved with Tylenol and worsening warmth, throbbing, and pain radiating up the forearm at 10/10. This morning he woke up with increased warmth/redness/swelling and came for further evaluation. Denies fevers. CThand shows 3 mm" cortical chip fracture defect of the fifth metacarpal likely due to penetrating trauma, subcu edema of the hand, no retained foreign body. Patient has been placed on Rocephin in the ER and tetanus was updated. He has no leukocytosis, BMP is normal, creatinine 0.90. At bedside patient reports he continues to have 7/10 pain at rest, which worsens to 10/10 with any attempted movement of the right fifth digit. His right fifth digit is also completely numb to the touch, the pain he feels is deeper and radiates past the wrist. Denies fever/chills/sweats. No chest pain. No known drug allergies. Vape use, would like a nicotine patch. Rare social alcohol use. Full code. Allergies Allergy/AdvReac Type Severity Reaction Status Date / Time No Known Drug Allergies Allergy nkda Verified 12/05/22 17:54 Home Medications Medication Instructions Recorded Confirmed Type tramadol 50 mg tablet 50 mg PO Q4H PRN Pain 12/05/22 12/05/22 History venlafaxine 75 mg capsule,extended 75 mg PO DAILY PRN Anxiety 12/05/22 12/05/22 History release 24 hr Past Med/Surg History Medical History Depression with anxiety Hypertension Insomnia Lumbago Male infertility Nightmares associated with chronic post-traumatic stress disorder PTSD (post-traumatic stress disorder) Surgical History Status post surgery Tonsil abscess removed. Family History Grandfather Heart disease Father Diabetes Hypertension Mother Hypertension Cancer Ovarian cancer Grandmother Cancer Brother Myocardial infarction Grandfather (Paternal) Myocardial infarction Grandfather (Maternal) Myocardial infarction Grandmother (Maternal) Ovarian cancer Denies family history of Prostate cancer Breast cancer Colorectal cancer Social History Smoking Status: Current every day smoker Tobacco Type: E-cigarettes / Vaping Second Hand Exposure: No; Hx Alcohol Use: No Hx Substance Use: No Preferred Language: Cymra[place] Communication Ability: Effective Visual Impairment: Limited Hearing Ability: Normal Beliefs That Will Affect Care: None marital status: Single marital status details: Lives with Children. Current Living Situation: Family current occupational status: employed How many Children do You have: 3 Feels Safe at Home: Yes Childhood Exposure to Second-Hand Smoke: No caffeine: Yes (Soda - occasional Tea - occasional.) during the past year weight has: remained stable Dental Care, Regularly: No Physical Activity Frequency: Daily Seatbelt Use: always Sunscreen Use: No Review of Systems Review of Systems: All systems reviewed & are unremarkable except as noted in Subjective Physical Exam Physical Exam: General: A&Ox3. NAD. Cooperative. HEENT: Atraumatic, normocephalic. Pulm: CTAB A&P. -wheezes, -rales, -rhonchi. Symmetrical chest rise. No increase in work of breathing. No respiratory distress. Cardiac: RRR, -mrg. Radial pulses intact and symmetrical. Extremities: Right lateral palm with erythema warmth, tenderness and laceration closed with interrupted sutures. Diffuse pain on any attempted movement of right fifth digit. Passive flexion/extension of DIP/PIP of right fifth finger causes pain rating through the wrist to the elbow. No discharge or purulence. Results & Data Results & Data ([facility]) Vital Signs (Past 12 Hours) Vital Signs Temp Pulse Pulse Resp BP Pulse Ox O2 Del Method 12/05/22 18:49 57 L 20 123/79 99 Room Air 12/05/22 14:57 36.4 C L 77 18 99 Room Air Code Status & VTE Plan VTE Prophylaxis Plan VTE Prophylaxis will be ordered: Yes PG Care Time/CCT Total # of Minutes Spent Total Time Spent with Patient: Total time spent is greater than 50% in coordination of care (as documented) at patient's floor/unit and/or counseling patient: Coding Level of Care Code 54780 INT INP/OBS CARE 2/55MIN Diagnoses Injury of right hand S69.91XA Hypertension I10 Depression with anxiety F41.8
[2022-12-05] MEDS ORDERED: MoRPHine SULFATE 4 MG/ML 1 ML CARP\\VIAL IV PRN (20:37)
[2022-12-05] MEDS ORDERED: ACETAMINOPHEN 325 MG TAB PO PRN (20:37)
[2022-12-05] MEDS ORDERED: MoRPHine SULFATE 2 MG/ML CARP IV PRN (20:37)
[2022-12-05] MEDS: AMPICILLIN/SULBACTAM SOD 3,000 MG in 0.9 % SODIUM CHLORIDE 100 ML IV SCH (21:30)
[2022-12-05] MEDS ORDERED: IBUPROFEN 800 MG TAB PO STA (22:04)
[2022-12-05] MEDS ORDERED: MoRPHine SULFATE 2 MG/ML CARP IV STA (22:08)
[2022-12-05] MEDS ORDERED: GADOBUTROL 65ML VIAL IV ONE (23:15)
--- NOTE | 2022-12-05 23:44 | Magnetic Resonance Report ---
MR hand RT wo/w con HISTORY: 37 years-old Male ?tenosynovitis motion degraded exam. Acute right hand pain COMPARISON: CT right hand of same day TECHNIQUE: Multi planar multisequence MRI of the right hand was obtained both with and without the us e of Gadavist FINDINGS: Motion degraded exam. There is moderate enhancing subcutaneous edema of the dorsal hand and wrist wit h subcutaneous and deep tissue edema extending into the digits, most pronounced within the fourth and fifth fingers. Laceration of the ulnar hand/fifth finger. Tiny cortical chip fracture involving the fifth metacarpal is better seen on the comparison CT. The flexor tendons and flexor retinaculum appear to be within normal limits. Visualized portions of t he median and ulnar nerves are unremarkable. The visualized flexor and extensor tendons appear intact . No evidence of tenosynovitis. IMPRESSION: 1. Motion degraded exam. 2. Enhancing subcutaneous edema of the hand suggestive of cellulitis. No abscess. 3. Acute subtle cortical chip fracture of the fifth metacarpal is better seen on the comparison CT. 4. No MR evidence of tenosynovitis, acute tendon or ligament injury considering the aforementioned li mitations. ACT 112: Negative or not required by law. The above report was generated using voice recognition software. It may contain grammatical, syntax o r spelling errors. Electronically signed by: Romero Shah M.D. 12/05/2022 11:42 PM
[2022-12-06] MEDS: AMPICILLIN/SULBACTAM SOD 3,000 MG in 0.9 % SODIUM CHLORIDE 100 ML IV SCH ×2 (03:50→09:46)
[2022-12-06 07:53] LABS: Basophils # (auto) 0.02 K/uL (0-0.2); Basophils % (auto) 0.2 %; Eosinophils # (auto) 0.28 K/uL (0-0.50); Eosinophils % (auto) 3.5 %; Hematocrit (blood only) 40.7 % (40.1-51.0); Hemoglobin 14.1 g/dl (14.0-18.0); Immature Granulocytes # (auto) 0.02 K/uL (0.00-0.02); Immature Granulocytes % (auto) 0.2 %; Lymphocytes # (auto) 3.08 K/uL (1.2-3.4); Lymphocytes % (auto) 38.4 %; Mean Corpuscular Hemoglobin 30.4 pg (25.0-34.0); Mean Corpuscular Hgb Conc 34.6 g/dL (32.0-36.0); Mean Corpuscular Volume 87.7 fL (80.0-100.0); Mean Platelet Volume 10.8 fL (9.4-12.4); Monocytes # (auto) 0.74 K/uL (0.24-0.82); Monocytes % (auto) 9.2 %; Neutrophils # (auto) 3.89 K/uL (1.4-6.5); Neutrophils % (auto) 48.5 %; Platelet Count 214 K/uL (130-400); RDW Coefficient of Variation 12.8 % (11.5-14.5); RDW Standard Deviation 40.6 fL (36.4-46.3); Red Blood Count 4.64 M/uL (4.63-6.08); White Blood Count 8.03 K/ul (4.8-10.8)
--- NOTE | 2022-12-06 08:00 | Hospitalist Progress Note ---
Date of Service December 06, 2022 Assessment & Plan (1) Injury of right hand: Plan: Chainsaw injury to right hand Dominant hand his left hand Sustained on Thursday, was seen in [place] was soaked 3 times and then had laceration repair approximately 1 hour post injury. Was discharged on Keflex twice daily Did not improve, gradually worsened, on 12/05 greatly increased pain redness and erythema Passive flexion/extension of the right fifth PIP/DIP does cause shooting radiating pain past the wrist CThand: 1. 3 mm acute cortical chip fracture defect of the fifth metacarpal, likely secondary to penetrating trauma. 2. Subcutaneous edema of the hand.3. No opaque foreign body identified. Tendon sheath poorly visualized on CT, MRI pending given radiating pain through wrist and elbow with minimal passive flexion/extension of right fifth PIP/DIP. No evidence of abscess on contrasted CT Orthopedics consulted for evaluation Given worsening over several days and enclosure from suturing will expand for anaerobe coverage, continue Unasyn at this time. No known history or exposure to MRSA. No purulence or abscess appreciated Hypertension On chart review, patient BP normal does not take antihypertensives currently Anxiety depression Continue venlafaxine daily Tobacco use Vapes daily. Patch provided. DVT prophylaxis: Low risk, SCDs Disposition: Medical surgical Diet: N.p.o. pending surgical eval CODE STATUS: Full code (2) Hypertension: (3) Depression with anxiety: Admission and Anticipated Discharge Date Admission Date: December 05, 2022 Results & Data [facility] Vital Signs (Past 12 Hours) Vital Signs Temp Pulse Pulse Resp BP Pulse Ox O2 Del Method 12/06/22 07:22 97.9 F 53 L 18 103/64 98 Room Air 12/05/22 23:30 97.7 F 78 18 114/69 98 Room Air 12/05/22 20:25 98.1 F 65 18 154/94 H 99 Room Air 12/05/22 20:00 85 18 123/79 98 Room Air PG Care Time/CCT Total # of Minutes Spent Total Time Spent with Patient: Total time spent is greater than 50% in coordination of care (as documented) at patient's floor/unit and/or counseling patient: Coding Diagnoses Injury of right hand S69.91XA Hypertension I10 Depression with anxiety F41.8
--- NOTE | 2022-12-06 08:15 | Orthopedic Consultation ---
Date of Consultation December 06, 2022 Assessment & Plan (1) Cellulitis of right hand: Elevation IV antibiotics Pain control Trend labs and inflammatory markers Medical management After reviewing the MRI there does not appear to be any evidence of flexor tenosynovitis or tendinous injury. There is no evidence of abscess. Findings appear to be consistent with cellulitis, he does have some tenderness over the hypothenar eminence but that does not appear to extend out into the flexor tendon sheath into the digit as much. There is also no fusiform swelling present. Swelling is localized mainly to the hypothenar eminence. No acute intervention for small avulsion chip off the fifth metacarpal. It does appear that he could have possibly sustained an injury to his digital nerve during his accident. His CRP is also only 0.99. I would recommend continuing IV antibiotics as well as elevation and pain control. We will plan for him to follow-up as an outpatient with one of our hand surgeons. History of Present Illness Reason for Consultation: Right small finger chainsaw injury Attending Physician: Sarwat Wagner MD History of Present Illness 37-year-old male [id number] presenting 4 days after sustaining a chainsaw injury to his left hand over the fifth metacarpal. 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 He denies any other injuries. He was seen in outside emergency department and given Keflex twice daily. Over the last several days he has noted increased pain in his hand. He presented to the ED for evaluation. In the ED he was noted to have pain with passive range of motion and he was admitted for IV antibiotics as well as concern for flexor tenosynovitis. Allergies Allergy/AdvReac Type Severity Reaction Status Date / Time No Known Drug Allergies Allergy nkda Verified 12/05/22 17:54 Home Medications Medication Instructions Recorded Confirmed Type tramadol 50 mg tablet 50 mg PO Q4H PRN Pain 12/05/22 12/05/22 History venlafaxine 75 mg capsule,extended 75 mg PO DAILY PRN Anxiety 12/05/22 12/05/22 History release 24 hr Patient History Medical History Depression with anxiety Hypertension Insomnia Lumbago Male infertility Nightmares associated with chronic post-traumatic stress disorder PTSD (post-traumatic stress disorder) Surgical History Status post surgery Tonsil abscess removed. Family History Grandfather Heart disease Father Diabetes Hypertension Mother Hypertension Cancer Ovarian cancer Grandmother Cancer Brother Myocardial infarction Grandfather (Paternal) Myocardial infarction Grandfather (Maternal) Myocardial infarction Grandmother (Maternal) Ovarian cancer Denies family history of Prostate cancer Breast cancer Colorectal cancer Social History Smoking Status: Current every day smoker Tobacco Type: E-cigarettes / Vaping Second Hand Exposure: No; Do You Dip or Chew Tobacco: No; Hx Alcohol Use: No Hx Substance Use: Yes Preferred Language: Swedish Communication Ability: Effective Visual Impairment: Limited Hearing Ability: Normal Floatlight Powder Mixer Required: No Beliefs That Will Affect Care: None marital status: Single marital status details: Lives with Children. Current Living Situation: Alone current occupational status: employed How many Children do You have: 3 Other Information That Helps Us Care for You: No Feels Safe at Home: Yes Safety Concerns: Feels Safe At This Time Childhood Exposure to Second-Hand Smoke: No caffeine: Yes (Soda - occasional Tea - occasional.) during the past year weight has: remained stable Dental Care, Regularly: No Physical Activity Frequency: Daily Seatbelt Use: always Sunscreen Use: No Assistive Devices: Glasses Physical Exam Constitutional: General: No acute distress, alert and oriented person place and time, resting in bed Musculoskeletal: Left upper extremity -Sensation intact to light touch superficial radial/median/ulnar nerves. There is diminished sensation over the small finger distal to the laceration -There is pain with attempted active range of motion of the small finger. He does tolerate some gentle flexion and extension and small arcs with only minimal pain. -There is no significant erythema or fluctuation noted there is no active drainage noted from the wound there is sutures present. Wound does extend from the dorsal aspect over the ulnar aspect of the hypothenar eminence -Swelling is localized to the thenar eminence there is no significant swelling in the small finger. -Palpable radial pulse with brisk capillary refill Results & Data ([facility]) Vital Signs (Past 12 Hours) Vital Signs Temp Pulse Resp BP Pulse Ox O2 Del Method 12/06/22 07:22 36.6 C 53 L 18 103/64 98 Room Air 12/05/22 23:30 36.5 C 78 18 114/69 98 Room Air 12/05/22 20:25 36.7 C 65 18 154/94 H 99 Room Air Laboratory Results CRP 0.99 Diagnostic Findings MRI of the hand demonstrates no evidence of abscess or fluid collection. There is no significant fluid around the tendon sheath to indicate flexor tenosynovitis. There also appears to be no tendinous injury. There is a small chip off the fifth metacarpal
[2022-12-06 08:33] LABS: Anion Gap 3 (3-11); Calcium 8.5 mg/dl (8.5-10.1); Carbon Dioxide 31 mmol/L (21-32); Chloride 107 mmol/L (98-107); Potassium 4.2 mmol/L (3.5-5.1); Sodium 141 mmol/L (136-145)
[2022-12-06 08:39] LABS: BUN Creatinine Ratio 16.8 (10-20); Blood Urea Nitrogen 16 mg/dl (6-23); C Reactive Protein < 0.50 mg/dl (0-0.5); Creatinine Clr Calc Pharmacy 110.4 ml/min; Est GFR (African American) 119.7 ml/min; Est GFR (Non-African American) 103.3 ml/min; Glucose 98 mg/dl (70-99(Fasting))
[2022-12-06] MEDS ORDERED: NICOTINE 7 MG/24 HR TDSY TD SCH (09:00)
[2022-12-06] MEDS ORDERED: BACITRACIN/POLYMYXIN B SULFATE 90 APPLN/28.4 GM TUBE EXT ONE (12:37)
--- NOTE | 2022-12-06 13:47 | Discharge Summary ---
Date of Service December 06, 2022 Admission HPI Per Admitting Provider Patient seen and examined, chart reviewed, case discussed with Aneesh Gan and I agree with the assessment and plan as above except as otherwise noted Labs and images reviewed Haresh is a 37-year-old male with a history of depression/PTSD/anxiety who presented with right hand pain, swelling, and warmth after trimming a tree and sustaining a chainsaw laceration 3 days ago. He was seen at [facility] in [place], hand was soaked with hydrogen peroxide and water, had an x-ray performed that did not show bony involvement, and had a laceration repair while leaving a small opening on the palmar aspect. He did not have an updated tetanus. He was discharged on Keflex 3 times daily. He has since had progressive uncontrollable pain not improved with Tylenol and worsening warmth, throbbing, and pain radiating up the forearm at 10/10. This morning he woke up with increased warmth/redness/swelling and came for further evaluation. Denies fevers. CThand shows 3 mm" cortical chip fracture defect of the fifth metacarpal likely due to penetrating trauma, subcu edema of the hand, no retained foreign body. Patient has been placed on Rocephin in the ER and tetanus was updated. He has no leukocytosis, BMP is normal, creatinine 0.90. At bedside patient reports he continues to have 7/10 pain at rest, which worsens to 10/10 with any attempted movement of the right fifth digit. His right fifth digit is also completely numb to the touch, the pain he feels is deeper and radiates past the wrist. Denies fever/chills/sweats. No chest pain. No known drug allergies. Vape use, would like a nicotine patch. Rare social alcohol use. Full code. Principal Diagnosis Right hand cellulitis due to laceration Fifth metatarsal with chip fracture Discharge Exam Patient's erythema has reportedly receded although I did not initially see it is only very minimally surrounding the suture line at this point time there is no fluctuance there is no tenderness of his extensor tendons he does have some end anesthesia to his lateral fifth finger would likely from nerve damage which may not return Discharge Data Allergies Allergy/AdvReac Type Severity Reaction Status Date / Time No Known Drug Allergies Allergy nkda Verified 12/05/22 17:54 Consultations 12/05/22 18:55 ED Decision to Admit Stat 12/05/22 20:37 Consult Orthopedic Surgery Routine Ordered Studies 12/05/22 16:40 CT hand RT w con Stat 12/05/22 19:34 MR hand RT wo/w con Stat Hospital Course (1) Injury of right hand: Chainsaw injury to right hand Patient with traumatic improvement on Unasyn therapy. Patient be discharged on Bactrim therapy for additional 10 days with follow-up with Dr. Lewis hand surgery for evaluation and continued treatment of his chip fracture CThand: 1. 3 mm acute cortical chip fracture defect of the fifth metacarpal, likely secondary to penetrating trauma. 2. Subcutaneous edema of the hand.3. No opaque foreign body identified. Tendon sheath poorly visualized on CT, MRI pending given radiating pain through wrist and elbow with minimal passive flexion/extension of right fifth PIP/DIP. No evidence of abscess on contrasted CT Orthopedics consulted for evaluation will follow up as an outpt Anxiety depression Continue venlafaxine daily Tobacco use Vapes daily. Patch provided. DVT prophylaxis: Low risk, SCDs Disposition: Medical surgical CODE STATUS: Full code (2) Hypertension: (3) Depression with anxiety: Total Time Total Time Spent Total Time Spent (In Minutes): It required greater than 30 minutes to prepare this patient for discharge Discharge Plan Discharge Items Patient Disposition: Home - Self-Care Reason For Visit: R HAND CHAINSAW INJURY Discharge Diagnosis: hand infection from laceration 5th metacarpal chip fracture Activity: Per Instructions section Activity Comment: off work to restart 12/15/22, rest, ice and elevate especially after return Non-emergency contact: Primary Care Provider and Surgeon Call non-emergency contact if: your symptoms worsen Follow-up/Referrals: Rufus Marino CRNP [Primary Care Provider] - Johnson Lewis MD [Physician] - Diet: Regular Addtl Attending Provider Instructions: Your bladder infection and a small fracture in your right hand. Recommended that you take at least a week off work and when doing so try to keep her hand elevated above the level of your heart when sitting or lying. Recommend to ice her hand 30 minutes on 30 minutes off as much as you can throughout the day. When returning back to work could be likely that your hand will have increased pain and swelling and would definitely be beneficial to ice your hand after work Gently wash your wound once a day with soap and water apply an antibiotic ointment and you may keep it uncovered if not at work when she returned to work it should be covered through the day. If the wound becomes soiled it would be recommended that you wash it with gentle soap and water reapply moisturizing agent whether antibiotic ointment or Chapstick and then keep it covered. It would not be beneficial to apply alcohol or hand x ray nurse to your wound as it will impede her healing. Please make an appointment for follow-up for stitch removal approximately 10 days or so after the initial stitches were applied you may do this through your primary care office or through Dr. Lewis Please complete your antibiotics only take pain medication as needed as it may impair your ability to drive a vehicle or operate machinery. If you need pain control throughout the day you may use Tylenol or ibuprofen Pending Studies at Discharge: No Stand-Alone Forms: My [facility], Work/School Release, Smoking Cessation Medications and DC Order Prescriptions: New sulfamethoxazole-trimethoprim [Bactrim DS] 800-160 mg tablet 1 tab PO BID 10 Days Qty: 20 0RF oxycodone 5 mg tablet 5 - 10 mg PO TID PRN (Reason: pain) Qty: 20 0RF Continued tramadol 50 mg Tablet 50 mg PO Q4H PRN (Reason: Pain) venlafaxine 75 mg capsule,extended release 24hr 75 mg PO DAILY PRN (Reason: Anxiety) Discharge Orders: Discharge Order (Routine); Ordered 12/06/22 Ordered By: Sarwat Wagner Admission Data Admit Date/Time: 12/05/22 19:18 Attending Provider: Sarwat Wagner Admit Provider: Zeke Grady Primary Care Provider: Rufus Marino Other Providers: Romero Gil ; Zeke Grady Coding Level of Care Code HOSP INP/OBS DISCH >30 MIN Diagnoses Injury of right hand S69.91XA Hypertension I10 Depression with anxiety F41.8
== END 2022-12-06 14:39 | disposition home or self-care (01) ==
LOC: ED 14:29 → 3N 14:29 → SUATTDRO 19:18 → 3N 20:42
DX: S92.351A Displaced fracture of fifth metatarsal bone, right foot, initial encounter for closed fracture; W29.3XXA Contact with powered garden and outdoor hand tools and machinery, initial encounter; F17.290 Nicotine dependence, other tobacco product, uncomplicated; L03.115 Cellulitis of right lower limb; I10 Essential (primary) hypertension

== ENCOUNTER 2022-12-06 22:31 | Observation (INO) ==
[2022-12-06] MEDS ORDERED: KETOROLAC TROMETHAMINE 15 MG/ML VIAL IV ONE (22:55)
[2022-12-06] MEDS ORDERED: SODIUM CHLORIDE 0.9% 1000ML 1,000 ML IV ONE (22:55)
[2022-12-06] MEDS ORDERED: SULFAMETHOXAZOLE/TRIMETHOPRIM DS 800/160MG TAB PO ONE (22:56)
[2022-12-06] MEDS ORDERED: cefTRIAXone SODIUM 2,000 MG/70 ML BAG IV STA (22:56)
--- NOTE | 2022-12-06 23:00 | Emergency Department Note ---
Impression & Plan Cellulitis of right hand, Hand pain ED Provider Note NAME: BETO BAINS AGE: 37 SEX: M : 1985 ARRIVES VIA: Ambulance INFORMANT: Patient ED PROVIDER(S): Abhijeet Narvaez DO CHIEF COMPLAINT: right hand pain HPI: Patient is a 37-year-old male who presents to the ER for severe pain in his right hand. He notes that he cut his hand with a chainsaw and was seen at outside facility. He presented here and was treated with IV antibiotics the other day. He left earlier today even though they wanted him to stay at least another day per the patient for additional day of IV antibiotics. Denies any headache or change in vision. No chest pain or shortness of breath. No nausea, vomiting, or diarrhea. No other exacerbating or remitting factors. He notes his hand is swelling and is having worsening pain. PAST MEDICAL HISTORY:See Below PAST SURGICAL HISTORY:See Below FAMILY HISTORY:See Below SOCIAL HISTORY:See Below HOME MEDICATIONS:See Below ALLERGIES:See Below VITALS:See Below PHYSICAL EXAMINATION: GENERAL: Sitting up in bed, alert, well appearing, well nourished, no distress, non-toxic EYE EXAM: normal conjunctiva. OROPHARYNX: mucous membranes are moist LUNGS: Clear to auscultation. Normal chest wall mechanics HEART: no murmurs, S1 normal and S2 normal ABDOMEN: abdomen soft, non-tender, normo-active bowel sounds, no masses, no rebound or guarding. BACK: Back is symmetrical on inspection and there is no deformity, no midline tenderness, no CVA tenderness. UPPER EXTREMITIES: Flexion-extension right shoulder elbow wrist intact. Swelling and erythema over the fifth digit tracking proximally through the wrist. Green purulent drainage throughout the sutures placed over the medial aspect of the fifth digit. LOWER EXTREMITIES: No pitting edema. NEURO EXAM: Normal sensorium, cranial nerves II-XII grossly intact, normal speech, no gross weakness of arms, no gross weakness of legs. MEDICAL DECISION MAKING: Patient is a 37-year-old male who presents the ER for the boasting complaint. IV was established blood work was obtained. Labs show no significant leukocytosis or anemia. BMP with a glucose of 68. LFTs bilirubin was unremarkable. COVID was negative. Patient was given IV morphine, Toradol as well as IV fluids combination with 2 g Rocephin and oral Bactrim. Patient was updated at bedside. Discussed case with Dr. Sylvester Tellez for further evaluation. External records were reviewed. Triage Nursing notes reviewed. Limited review of prior medical records performed Vital Signs: reviewed and remarkable for no significant abnormalities Differential diagnosis: Cellulitis, abscess, MRSA infection, DVT, necrotizing fasciitis, dermatitis, drug eruption, allergic reaction, as well as other pathologies. ER treatment provided: See below Diagnostics interpreted by me include EKG and cardiac monitoring as listed below: -Cardiac Monitoring: An order was placed for continuous cardiac monitoring. The monitor shows a rate of 70 with sinus rhythm. -ECG: none -Laboratory studies:Interpreted by me as stated above in MDM and shown below. Imaging studies: Xrays: As interpreted by me:none CTs show: none Consultation(s): Discussed with Dr. Sylvester Tellez in regards to presentation, work-up and treatment Procedures:none Critical Care: None Past Med/Surg History Medical History Depression with anxiety Hypertension Insomnia Lumbago Male infertility Nightmares associated with chronic post-traumatic stress disorder PTSD (post-traumatic stress disorder) Surgical History Status post surgery Tonsil abscess removed. Family History Grandfather Heart disease Father Diabetes Hypertension Mother Hypertension Cancer Ovarian cancer Grandmother Cancer Brother Myocardial infarction Grandfather (Paternal) Myocardial infarction Grandfather (Maternal) Myocardial infarction Grandmother (Maternal) Ovarian cancer Denies family history of Prostate cancer Breast cancer Colorectal cancer Social History Smoking Status: Heavy tobacco smoker Tobacco Type: E-cigarettes / Vaping Second Hand Exposure: No; Hx Alcohol Use: No Hx Substance Use: Yes Preferred Language: Bulgarian Communication Ability: Effective Visual Impairment: Limited Hearing Ability: Normal Rn Anesthesiology Required: No Beliefs That Will Affect Care: None marital status: Single marital status details: Lives with Children. Current Living Situation: Alone current occupational status: employed How many Children do You have: 3 Feels Safe at Home: Yes Childhood Exposure to Second-Hand Smoke: No caffeine: Yes (Soda - occasional Tea - occasional.) during the past year weight has: remained stable Dental Care, Regularly: No Physical Activity Frequency: Daily Seatbelt Use: always Sunscreen Use: No Assistive Devices: Glasses Allergies Allergies Allergy/AdvReac Type Severity Reaction Status Date / Time No Known Allergies Allergy Verified 12/06/22 23:01 Home Meds Home Medications Medication Instructions Recorded Confirmed tramadol 50 mg tablet 50 mg PO Q4H PRN Pain 12/05/22 12/06/22 venlafaxine 75 mg capsule,extended 75 mg PO DAILY PRN Anxiety 12/05/22 12/06/22 release 24 hr Previous Rx's Medication Instructions Recorded oxycodone 5 mg tablet 5 - 10 mg PO TID PRN pain #20 tabs 12/06/22 sulfamethoxazole 800 1 tab PO BID 10 days #20 tabs 12/06/22 mg-trimethoprim 160 mg tablet (Bactrim DS) Results & Data (ED) Vital Signs Vital Signs - 24 hr 12/06/22 22:41 12/06/22 22:41 12/06/22 23:05 Temperature 36.7 C Temperature Source Oral Pulse Rate 64 69 Pulse Rate [Apical] 64 Pulse Rhythm Regular Pulse Strength Normal Respiratory Rate 18 18 20 Respiratory Effort / Characteristics Non-Labored Respiratory Depth Normal Respiratory Pattern Regular Blood Pressure 140/86 Blood Pressure [Right Arm] 140/86 Blood Pressure Mean 104 Blood Pressure Mean [Right Arm] 104 Pulse Oximetry 99 99 97 Oxygen Delivery Method Room Air Room Air Sepsis Recent Fever Within 48 Hours No Sepsis New/Unexplained Change in Mental Status No Sepsis Action Taken by Nursing No Action Required Laboratory Data 12/06/22 23:00 12/06/22 23:00 Lab Results 12/06/22 12/06/22 12/06/22 Range/Units 23:00 23:00 23:00 WBC 9.67 (4.8-10.8) K/ul RBC 4.94 (4.63-6.08) M/uL Hgb 14.9 (14.0-18.0) g/dl Hct 44.4 (40.1-51.0) % MCV 89.9 (80.0-100.0) fL MCH 30.2 (25.0-34.0) pg MCHC 33.6 (32.0-36.0) g/dL RDW Std Deviation 40.3 (36.4-46.3) fL RDW Coeff of Bonnie 12.3 (11.5-14.5) % Plt Count 246 (130-400) K/uL MPV 11.6 (9.4-12.4) fL Immature Gran % (Auto) 0.2 % Neut % (Auto) 58.3 % Lymph % (Auto) 30.1 % Denali % (Auto) 8.2 % Eos % (Auto) 2.9 % Baso % (Auto) 0.3 % Neut # (Auto) 5.64 (1.4-6.5) K/uL Lymph # (Auto) 2.91 (1.2-3.4) K/uL Denali # (Auto) 0.79 (0.24-0.82) K/uL Eos # (Auto) 0.28 (0-0.50) K/uL Baso # (Auto) 0.03 (0-0.2) K/uL Immature Gran # (Auto) 0.02 (0.00-0.02) K/uL Sodium 142 (136-145) mmol/L Potassium 4.6 (3.5-5.1) mmol/L Chloride 106 (98-107) mmol/L Carbon Dioxide 32 (21-32) mmol/L Anion Gap 4 (3-11) BUN 19 (6-23) mg/dl Creatinine 0.88 (0.6-1.4) mg/dl Est Cr Clr Drug Dosing 120.6 ml/min Est GFR ( Amer) 129.0 ml/min Est GFR (Non-Af Amer) 111.3 ml/min BUN/Creatinine Ratio 21.6 H (10-20) Glucose 68 L (70-99(Fasting)) mg/dl Calcium 9.3 (8.5-10.1) mg/dl Total Bilirubin 0.3 (0.2-1.0) mg/dl AST 14 (13-39) U/L ALT 11 (7-52) U/L Alkaline Phosphatase 53 (34-104) U/L Total Protein 6.5 (6.0-8.3) gm/dl Albumin 3.8 (3.4-5.0) gm/dl Globulin 2.7 (2.5-4.0) gm/dl Albumin/Globulin Ratio 1.4 (0.9-2) SARS-CoV-2, RNA, NAAT NEGATIVE (NEGATIVE) Administered Medications Discontinued Medications Sodium Chloride (Nss 1000ml) 1,000 mls @ 999 mls/hr IV .Q1H1M ONE Stop: 12/06/22 23:55 Last Admin: 12/06/22 23:09 Dose: 999 mls/hr Documented By: BS Ceftriaxone Sodium (Rocephin) 2,000 mg in 70 mls @ 140 mls/hr IV NOW STA Stop: 12/06/22 23:25 Last Admin: 12/06/22 23:09 Dose: 140 mls/hr Documented By: BS Ketorolac Tromethamine (Ketorolac Tromethamine 15 Mg/Ml Vial) 15 mg IV NOW ONE Stop: 12/06/22 22:56 Last Admin: 12/06/22 23:09 Dose: 15 mg Documented By: BS Morphine Sulfate (Morphine Sulfate 10 Mg/Ml Carp/Vial) 6 mg IV NOW STA Stop: 12/06/22 23:29 Last Admin: 12/07/22 00:10 Dose: 6 mg Documented By: ROBB Trimethoprim/Sulfamethoxazole (Sulfamethoxazole/Trimethoprim Ds 800/160mg Tab) 1 tab PO NOW ONE Stop: 12/06/22 22:57 Last Admin: 12/06/22 23:09 Dose: 1 tab Documented By: JB Discharge Plan Visit Data Chief Complaint: Swelling/Edema to Extremity Stated Complaint: INFECTION/HAND PAIN, HOT, SWELLING, HOT TO TOUCH ED Provider: Abhijeet Narvaez Discharge Problem: Cellulitis of right hand, Hand pain Patient Disposition: Admitted As Inpatient Discharge Instructions Interventions: ED Discharge Assessment Last Done: 12/07/22 00:05
[2022-12-06] MEDS ORDERED: MoRPHine SULFATE 10 MG/ML CARP/VIAL IV STA (23:28)
--- NOTE | 2022-12-06 23:56 | History & Physical Report ---
Date of Service December 06, 2022 Assessment & Plan (1) Injury of right hand: Plan: 37-year-old male with right hand cellulitis and swelling 2/2 chainsaw accident. Recent admission s/p IV Rocephin 2 g x 1 dose, IV Unasyn 3 g x 3 doses. Now admitted to observation for additional dose of IV Rocephin 2 g, Bactrim DS x1 dose. Right hand injury * Admitted to observation. * IV Rocephin 2 g. Patient already prescribed p.o. Bactrim DS x10 days. Complete upon discharge * IV Toradol 15 mg every 6 hours as needed. Held p.o. oxycodone, tramadol. Code: Full code Dispo: Med-Surg (observation) FEN/GI: Regular diet DVT Prophylaxis: None PT/OT: No Consults: (2) Cellulitis of right hand: History of Present Illness Primary Care Provider: YOSEF Garcia Haresh is a 37-year-old man who presents to the ER for severe right hand pain after cutting his hand with a chainsaw 2 days ago. He was seen at [facility], where his laceration was repaired and received an XR that was negative for bony involvement. He was discharged on Keflex 3 times daily presented to [facility] 12/05/2022 after developing worsening pain radiating to the forearm not improved with Tylenol. In the ED he also reported that his right fifth digit was numb to the touch. CT-hand showed a 3 mm cortical chip fracture of the fifth metacarpal with subcutaneous edema but no retained foreign body. After receiving 3 doses of Unasyn 3 g and a dose of Rocephin 2 g, he left AMA, despite the recommendation of the hospitalist that he stay for additional day of IV antibiotics. He was sent home on p.o. DS Bactrim x10 days, which he did not cook pickled meat. He returns today for continued severe pain. In the ED today, he was started on IV ceftriaxone 2 g and received 1 dose of Bactrim DS. Also received IV Toradol 50 mg x 1 dose. On admission, ROS negative. He reports pain is controlled at this time. He is anxious to go home. Allergies Allergy/AdvReac Type Severity Reaction Status Date / Time No Known Allergies Allergy Verified 12/06/22 23:01 Home Medications Medication Instructions Recorded Confirmed Type tramadol 50 mg tablet 50 mg PO Q4H PRN Pain 12/05/22 12/06/22 History venlafaxine 75 mg capsule,extended 75 mg PO DAILY PRN Anxiety 12/05/22 12/06/22 History release 24 hr oxycodone 5 mg tablet 5 - 10 mg PO TID PRN pain #20 tabs 12/06/22 12/06/22 Rx sulfamethoxazole 800 1 tab PO BID 10 days #20 tabs 12/06/22 12/06/22 Rx mg-trimethoprim 160 mg tablet (Bactrim DS) Past Med/Surg History Medical History Depression with anxiety Hypertension Insomnia Lumbago Male infertility Nightmares associated with chronic post-traumatic stress disorder PTSD (post-traumatic stress disorder) Surgical History Status post surgery Tonsil abscess removed. Family History Grandfather Heart disease Father Diabetes Hypertension Mother Hypertension Cancer Ovarian cancer Grandmother Cancer Brother Myocardial infarction Grandfather (Paternal) Myocardial infarction Grandfather (Maternal) Myocardial infarction Grandmother (Maternal) Ovarian cancer Denies family history of Prostate cancer Breast cancer Colorectal cancer Social History Smoking Status: Current some day smoker Tobacco Type: E-cigarettes / Vaping Cigarettes Per Day: pt vapes; Second Hand Exposure: No; Hx Alcohol Use: No Hx Substance Use: Yes Last Used Substance: Days (ago) Last Used Substance Other:: francis Preferred Language: Armenian Communication Ability: Effective Visual Impairment: Limited Hearing Ability: Normal Proposal Writer Required: No Beliefs That Will Affect Care: None marital status: Single marital status details: Lives with Children. Current Living Situation: Family Current Living Situation Comment: 3 kids current occupational status: employed How many Children do You have: 3 Feels Safe at Home: Yes Childhood Exposure to Second-Hand Smoke: No caffeine: Yes (Soda - occasional Tea - occasional.) during the past year weight has: remained stable Dental Care, Regularly: No Physical Activity Frequency: Daily Seatbelt Use: always Sunscreen Use: No Assistive Devices: None Review of Systems Review of Systems: All systems reviewed & are unremarkable except as noted in HPI & below Physical Exam Physical Exam: General: No acute distress HEENT: PERRLA. Normal conjunctiva, anicteric sclera. Oropharynx normal. Respiratory: Normal respiratory effort, CTA BL. Cardiovascular: RRR without murmurs, gallops, or rubs. No edema. GI: Soft abdomen with normal bowel sounds heard on auscultation. Nontender x4 quadrants Extremities: Right fifth digit covered with dressing. Underneath, swelling and redness of the aforementioned digit noted. Erythema also noted on the palm directly adjacent to the fifth digit and some redness at the wrist. Neuro: Alert and oriented x3. Results & Data Results & Data ([facility]) Vital Signs (Past 12 Hours) Vital Signs Temp Pulse Pulse Resp BP BP Pulse Ox 12/06/22 23:05 69 20 97 12/06/22 22:41 64 18 140/86 99 12/06/22 22:41 36.7 C 64 18 140/86 99 O2 Del Method 12/06/22 23:05 Room Air 12/06/22 22:41 12/06/22 22:41 Room Air Supervising Physician Co-Signing Physician Notes Attending addendum: I have physically seen this patient, have supervised the medical residents activities, and agree with the H&P unless as otherwise noted. Assessment and Plan: Right hand injury secondary to chainsaw accident- Patient had been discharged to home, however, he was not able to cook pickled meat his antibiotics in time before pharmacies closed, and was unable to keep his arm elevated. His symptoms intensified at home after he was discharged earlier in the morning due to the above. If he is on ceftriaxone 2 g IV and Bactrim DS twice daily Toradol 15 mg IV every 6 hours as needed moderate pain Acetaminophen 650 mg p.o. every 6 hours as needed for mild pain or fever Orthopedic surgery is aware the patient, and will see the patient again this admission Resident Activity Tracking Resident Involvement: Resident Care Provided Care Provided: Adult Hospital Medicine
[2022-12-06 23:57] LABS: Basophils # (auto) 0.03 K/uL (0-0.2); Basophils % (auto) 0.3 %; Eosinophils # (auto) 0.28 K/uL (0-0.50); Eosinophils % (auto) 2.9 %; Hematocrit (blood only) 44.4 % (40.1-51.0); Hemoglobin 14.9 g/dl (14.0-18.0); Immature Granulocytes # (auto) 0.02 K/uL (0.00-0.02); Immature Granulocytes % (auto) 0.2 %; Lymphocytes # (auto) 2.91 K/uL (1.2-3.4); Lymphocytes % (auto) 30.1 %; Mean Corpuscular Hemoglobin 30.2 pg (25.0-34.0); Mean Corpuscular Hgb Conc 33.6 g/dL (32.0-36.0); Mean Corpuscular Volume 89.9 fL (80.0-100.0); Mean Platelet Volume 11.6 fL (9.4-12.4); Monocytes # (auto) 0.79 K/uL (0.24-0.82); Monocytes % (auto) 8.2 %; Neutrophils # (auto) 5.64 K/uL (1.4-6.5); Neutrophils % (auto) 58.3 %; Platelet Count 246 K/uL (130-400); RDW Coefficient of Variation 12.3 % (11.5-14.5); RDW Standard Deviation 40.3 fL (36.4-46.3); Red Blood Count 4.94 M/uL (4.63-6.08); White Blood Count 9.67 K/ul (4.8-10.8)
[2022-12-07 00:23] LABS: Albumin Globulin Ratio 1.4 (0.9-2); Albumin Level 3.8 gm/dl (3.4-5.0); BUN Creatinine Ratio 21.6 (10-20); Bilirubin,Total 0.3 mg/dl (0.2-1.0); Calcium 9.3 mg/dl (8.5-10.1); Creatinine Clr Calc Pharmacy 120.6 ml/min; Est GFR (Non-African American) 111.3 ml/min; Globulin 2.7 gm/dl (2.5-4.0); Potassium 4.6 mmol/L (3.5-5.1); Total Protein 6.5 gm/dl (6.0-8.3)
[2022-12-07] MEDS ORDERED: VENLAFAXINE HCL XR 75 MG CAPXR PO PRN (00:33)
--- NOTE | 2022-12-07 07:02 | Hospitalist Progress Note ---
Date of Service December 07, 2022 Assessment & Plan (1) Injury of right hand: Plan: 37-year-old male with right hand cellulitis and swelling 2/2 chainsaw accident. Recent admission s/p IV Rocephin 2 g x 1 dose, IV Unasyn 3 g x 3 doses. Now admitted to observation for additional dose of IV Rocephin 2 g, Bactrim DS x1 dose. Right hand injury * Admitted to observation. * IV Rocephin 2 g. Patient already prescribed p.o. Bactrim DS x10 days. Complete upon discharge * IV Toradol 15 mg every 6 hours as needed. Held p.o. oxycodone, tramadol. Code: Full code Dispo: Med-Surg (observation) FEN/GI: Regular diet DVT Prophylaxis: None PT/OT: No Consults: (2) Cellulitis of right hand: Admission and Anticipated Discharge Date Admission Date: December 06, 2022 Subjective Pt doing well this morning. No events overnight. He reports that pain is improved and feels that swelling is also better. Does state that he still has numbness in this left 5th metatarsal that has been present since the accident. Review of Systems Review of Systems: As per above Physical Exam Physical Exam: General: No acute distress HEENT: Atraumatic and normocephalic, Normal conjunctiva, anicteric sclera. Oropharynx normal. Respiratory: Normal respiratory effort, CTA BL. Cardiovascular: RRR without murmurs, gallops, or rubs. No edema. GI: Soft abdomen with normal bowel sounds heard on auscultation. Nontender x4 quadrants Extremities: Right fifth digit covered with dressing. Underneath, swelling and redness of the aforementioned digit noted. Erythema also noted on the palm directly adjacent to the fifth digit and some redness at the wrist. Neuro: Alert and oriented x3. Results & Data Results & Data ([facility]) Vital Signs (Past 12 Hours) Vital Signs Temp Pulse Pulse Pulse Resp BP BP 12/07/22 00:20 36.5 C 67 16 135/87 12/07/22 00:05 138/81 12/06/22 23:05 69 20 12/06/22 22:41 64 18 140/86 12/06/22 22:41 36.7 C 64 18 140/86 Pulse Ox O2 Del Method 12/07/22 00:20 96 Room Air 12/07/22 00:05 Room Air 12/06/22 23:05 97 Room Air 12/06/22 22:41 99 12/06/22 22:41 99 Room Air Resident Activity Tracking Resident Involvement: Resident Care Provided Care Provided: Adult Hospital Medicine
--- NOTE | 2022-12-07 13:44 | Discharge Summary ---
Date of Service December 07, 2022 Admission HPI Per Admitting Provider Haresh is a 37-year-old man who presents to the ER for severe right hand pain after cutting his hand with a chainsaw 2 days ago. He was seen at [facility], where his laceration was repaired and received an XR that was negative for bony involvement. He was discharged on Keflex 3 times daily presented to [facility] 12/05/2022 after developing worsening pain radiating to the forearm not improved with Tylenol. In the ED he also reported that his right fifth digit was numb to the touch. CT-hand showed a 3 mm cortical chip fracture of the fifth metacarpal with subcutaneous edema but no retained foreign body. After receiving 3 doses of Unasyn 3 g and a dose of Rocephin 2 g, he left AMA, despite the recommendation of the hospitalist that he stay for additional day of IV antibiotics. He was sent home on p.o. 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 He returns today for continued severe pain. In the ED today, he was started on IV ceftriaxone 2 g and received 1 dose of Bactrim DS. Also received IV Toradol 50 mg x 1 dose. On admission, ROS negative. He reports pain is controlled at this time. He is anxious to go home. Principal Diagnosis Soft Tissue Infection Right Hand Discharge Exam General: No acute distress HEENT: Atraumatic and normocephalic, Normal conjunctiva, anicteric sclera. Respiratory: Normal respiratory effort, CTA BL. Cardiovascular: RRR without murmurs, gallops, or rubs. No edema. GI: Soft abdomen with normal bowel sounds heard on auscultation. Nontender x4 quadrants Extremities: Right fifth digit covered with dressing. Underneath, edema and erythema of 5th metacarpal. Erythema also noted on the palm directly adjacent to the fifth digit and some redness at the wrist. Neuro: Alert and oriented x3. Discharge Data Allergies Allergy/AdvReac Type Severity Reaction Status Date / Time No Known Allergies Allergy Verified 12/06/22 23:01 Consultations 12/06/22 23:06 ED Decision to Admit Stat Ordered Studies Laboratory Results WBC 9.67 K/ul (4.8-10.8) 12/06/22 23:00 RBC 4.94 M/uL (4.63-6.08) 12/06/22 23: Hgb 14.9 g/dl (14.0-18.0) 12/06/22 23: Hct 44.4 % (40.1-51.0) 12/06/22 23: MCV 89.9 fL (80.0-100.0) 12/06/22 23: MCH 30.2 pg (25.0-34.0) 12/06/22: MCHC 33.6 g/dL (32.0-36.0) 12/06/22: RDW Std Deviation 40.3 fL (36.4-46.3) 12/06/22: RDW Coeff of Bonnie 12.3 % (11.5-14.5) 12/06/22: Plt Count 246 K/uL (130-400) 12/06/22: MPV 11.6 fL (9.4-12.4) 12/06/22:00 Immature Gran % (Auto) 0.2 % 12/06/22: Neut % (Auto) 58.3 % 12/06/22 23:00 Lymph % (Auto) 30.1 % 12/06/22 23:00 Kay % (Auto) 8.2 % 12/06/22 23:00 Eos % (Auto) 2.9 % 12/06/22 23:00 Baso % (Auto) 0.3 % 12/06/22 23:00 Neut # (Auto) 5.64 K/uL (1.4-6.5) 12/06/22 23: Lymph # (Auto) 2.91 K/uL (1.2-3.4) 12/06/22 23:00 Kay # (Auto) 0.79 K/uL (0.24-0.82) 12/06/22 23:00 Eos # (Auto) 0.28 K/uL (0-0.50) 12/06/22: Baso # (Auto) 0.03 K/uL (0-0.2) 12/06/22 23:00 Immature Gran # (Auto) 0.02 K/uL (0.00-0.02) 12/06/22 23: Sodium 142 mmol/L (136-145) 12/06/22 23:00 Potassium 4.6 mmol/L (3.5-5.1) 12/06/22 23:00 Chloride 106 mmol/L (98-107) 12/06/22 23:00 Carbon Dioxide 32 mmol/L (21-32) 12/06/22 23:00 Anion Gap 4 (3-11) 12/06/22 23:00 BUN 19 mg/dl (6-23) 12/06/22 23:00 Creatinine 0.88 mg/dl (0.6-1.4) 12/06/22 23:00 Est Cr Clr Drug Dosing 120.6 ml/min 12/06/22 23:00 Est GFR ( Amer) 129.0 ml/min 12/06/22 23:00 Est GFR (Non-Af Amer) 111.3 ml/min 12/06/22 23:00 BUN/Creatinine Ratio 21.6 (10-20) H 12/06/22 23:00 Glucose 68 mg/dl (70-99(Fasting)) L 12/06/22 23:00 Calcium 9.3 mg/dl (8.5-10.1) 12/06/22 23:00 Total Bilirubin 0.3 mg/dl (0.2-1.0) 12/06/22 23:00 AST 14 U/L (13-39) 12/06/22 23:00 ALT 11 U/L (7-52) 12/06/22 23:00 Alkaline Phosphatase 53 U/L (34-104) 12/06/22 23:00 Total Protein 6.5 gm/dl (6.0-8.3) 12/06/22 23:00 Albumin 3.8 gm/dl (3.4-5.0) 12/06/22 23:00 Globulin 2.7 gm/dl (2.5-4.0) 12/06/22 23:00 Albumin/Globulin Ratio 1.4 (0.9-2) 12/06/22 23:00 SARS-CoV-2, RNA, NAAT NEGATIVE (NEGATIVE) 12/06/22 23:00 Hospital Course (1) Injury of right hand: 37-year-old male with right hand cellulitis and swelling 2/2 chainsaw accident. Recent admission s/p IV Rocephin 2 g x 1 dose, IV Unasyn 3 g x 3 doses. Now admitted to observation for additional dose of IV Rocephin 2 g, Bactrim DS x1 dose. Right hand injury * Pt was readmitted for treatment of soft tissue infection secondary to right hand laceration. Received a total of 2 doses of IV Rocephin prior to dc. * Patient already prescribed p.o. Bactrim DS x10 days BID and oxycodone for pain that he never picked up from his hospital stay on 12/05. Will stick with Bactrim as we would like to cover for both normal skin lacy, MRSA, and gram negatives given his mechanism of injury. He will follow up with orthopedics as prior CT showed cortical chip fracture of fifth metacarpal. Will also need stitches removed. Will make an appointment with either PCP or ortho for this. (2) Cellulitis of right hand: Total Time Total Time Spent Total Time Spent (In Minutes): <30 Discharge Plan Discharge Items Patient Disposition: Home - Self-Care Reason For Visit: SWELLING / EDEMA TO EXTREMITY Discharge Diagnosis: Soft Tissue Infection Right Hand Activity: Per Instructions section Non-emergency contact: Primary Care Provider Call non-emergency contact if: you have any medication questions, your pain is not controlled and you have a fever Follow-up/Referrals: Rufus Marino CRNP [Primary Care Provider] - Johnson Lewis MD [Physician] - Diet: Regular Addtl Attending Provider Instructions: Infection of Right Hand For the infection in your hand please pick on antibiotics (Bactrim) at the [facility] in [place]. You should take 1 tablet in the morning and another at night for the next 10 days. A prescription for oxycodone was also sent for pain, you can take this up to three times a day as needed for pain. You should not drive or operate machinery while taking this medication. A referral was sent to Dr. Lewis, he is a orthopedist, so his office should reach out to you to schedule an appointment. Please make an appointment for follow-up for stitch removal approximately 10 days or so after the initial stitches were applied you may do this through your primary care office or through Dr. Lewis. Try to keep you hand clean and dry, you can continue to keep in covered and able antibacterial ointment. 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 oxycodone 5 mg tablet 5 - 10 mg PO TID PRN (Reason: pain) Qty: 20 0RF Discharge Orders: Discharge Order (Routine); Ordered 12/07/22 Ordered By: Kait Freeman/Other Patient Handouts: Cellulitis Dc Admission Data Admit Date/Time: 12/06/22 23:20 Attending Provider: Abhijeet Delgado Admit Provider: Ron Reed Primary Care Provider: Rufus Marino Other Providers: Sylvester Tellez Other Interventions: Discharge Summary Assessment (RN) Last Done: 12/07/22 13:40 Supervising Physician Co-Signing Physician Notes I personally examined the patient and verified all hollingsworth points of history and exam, discussed case, and agree with decision making with Dr Hadley hand sore but feeling a little better. feels up to going home. main problem he thinks led to coming back was that he went home - dtr 18th birthday - then when he went to pharmacy it was closed. feels up to going home now, and pharmacy open. amira noted nad heent nc at mmm breathing unlabored no accessory muscles good effort R hand incision c/d/i surrounding swelling and dull erythema not at all tracking up arm no exudate. hand cellulitis, chainsaw injury, small fracture - imaging, ortho input reassuring - safe for home abx, pain control, supportive care. pharmacy now open - safe for home. outpt f/u to be scheduled, if he doesn't hear from ortho office in ~2-3 days instructed to call for clarification/scheduling Resident Activity Tracking Resident Involvement: Resident Care Provided Care Provided: Adult Hospital Medicine
[2022-12-07] MEDS ORDERED: cefTRIAXone SODIUM 2,000 MG in DEXTROSE 5% 50 ML IV SCH (14:00)
--- NOTE | 2022-12-07 14:34 | Billing Data ---
Date of Service December 07, 2022 Coding Level of Care Code HOSP INP/OBS DISCH 30 MIN/LESS
--- NOTE | 2022-12-08 03:06 | Billing Data ---
Date of Service December 08, 2022 Coding Level of Care Code 15247 INT INP/OBS CARE
== END 2022-12-07 14:45 | disposition left against medical advice (07) ==
LOC: 3N 22:31 → ED 22:31 → SUATTDRO 23:20 → 3N 12-07 00:05